=== PATIENT | female | born 1965 | race Two or more races ===

== ENCOUNTER 2018-05-03 14:58 | Outpatient (CLI) | payer OTHER ==
[~2018-05-03 14:58] MED LIST: CONEX TABLET1 EACH PO; DOLOGESIC CAPLE1 TAB PO; OMEPRAZOLE40 MG PO; TUSSIONEX PENNKI5 ML PO; ZANTAC300 MG PO
== END 2018-05-03 15:15 | disposition home or self-care (01) ==
LOC: SONOGRAMA 14:58
DX: R80.0 Isolated proteinuria (principal); I10 Essential (primary) hypertension; D50.8 Other iron deficiency anemias

== ENCOUNTER 2020-01-13 14:10 | Inpatient (IN) | payer OTHER ==
[~2020-01-13] VITALS: Ht 172.7 cm; Wt 122.5 kg
== END 2020-01-17 11:53 | disposition home or self-care (01) | DRG 812 ==
LOC: MEDI 14:10 → SURH 01-15 14:58
PROVIDERS: ADMIT Internal Medicine Cardiovascular Disease; ATTEND Internal Medicine Cardiovascular Disease
PROC: 30233N1 Transfusion of Nonautologous Red Blood Cells into Peripheral Vein, Percutaneous Approach (ICD-10-PCS; principal; 2020-01-13)
DX: D64.9 Anemia, unspecified (principal); J44.9 Chronic obstructive pulmonary disease, unspecified; I10 Essential (primary) hypertension; E03.9 Hypothyroidism, unspecified; E66.01 Morbid (severe) obesity due to excess calories; G47.39 Other sleep apnea; F41.8 Other specified anxiety disorders; Z68.34 Body mass index [BMI] 34.0-34.9, adult
CPT/HCPCS: 70553